=== PATIENT | male | born 1935 | race Caucasian/White ===

== ENCOUNTER → 2020-10-11 | Outpatient (CLI) | payer MEDICARE, BC ==
[~2020-10-11] MED LIST: REGADENOSON 0.4 MG/5 ML SYRINGE ONE
== END | disposition home or self-care (01) ==
LOC: CFH 12:25
PROVIDERS: ATTEND Internal Medicine Cardiovascular Disease
DX: I08.0 Rheumatic disorders of both mitral and aortic valves (principal); I48.19 Other persistent atrial fibrillation; I11.9 Hypertensive heart disease without heart failure; I25.10 Atherosclerotic heart disease of native coronary artery without angina pectoris
CPT/HCPCS: 78452; 93017; 93306; A9502; J2785

== ENCOUNTER 2021-06-06 20:41 | Inpatient (IN) | payer MEDICARE, BC ==
[~2021-06-06] VITALS: Ht 177.8 cm; Wt 101.6 kg
--- NOTE | 2021-06-06 21:23 | NUR ---
Patient presents to ER c/o three episodes of vomiting which he describes as "black" and intermittent bloody stools since the [employer]. Patient is on Eliquis. States he has discomfort in his low abd when vomiting. Patient is in NAD. Respirations even and unlabored.
[2021-06-06] MEDS ORDERED: PANTOPRAZOLE 80 MG in SODIUM CHLORIDE 0.9% 50 ML IVPB ONE (21:30)
--- NOTE | 2021-06-06 21:45 | NUR ---
Patient vomited which was black.
[2021-06-06] MEDS ORDERED: ONDANSETRON 2MG/ML, 2ML ONE (21:59)
[2021-06-06] MEDS ORDERED: ONDANSETRON 2MG/ML, 2ML IVPush ONE (22:00)
[2021-06-06 22:04] LABS: BASOPHILS % (AUTO) 1 % (0-1); EOSINOPHILS % (AUTO) 1 % (1-7); LYMPHOCYTES % (AUTO) 18 % (22-44); MEAN CORPUSCULAR HEMOGLOBIN 31.7 pg (27.5-34.5); MEAN CORPUSCULAR HGB CONC 33.6 g/dL (33.2-36.2); MEAN PLATELET VOLUME 8.4 fL (7.4-10.4); MONOCYTES % (AUTO) 8 % (2-9); NEUTROPHILS % (AUTO) 73 % (42-75); PLATELET COUNT 175 x10^3/uL (130-400); RED BLOOD COUNT 3.17 x10^6/uL (4.38-5.82); RED CELL DISTRIBUTION WIDTH 14.5 % (9.4-14.8)
[2021-06-06 22:15] LABS: INTERNATIONAL NORMALIZED RATIO 1.23 (0.93-1.1)
[2021-06-06 22:16] LABS: ALANINE AMINOTRANSFERASE 30 U/L (12-78); ALBUMIN 2.8 g/dL (3.4-5.0); ANION GAP 9 mmol/L (5-15); CALCIUM 8.9 mg/dL (8.5-10.1); CHLORIDE 108 mmol/L (98-107); CREATININE 1.31 mg/dL (0.7-1.3)
[2021-06-06 22:21] LABS: ALKALINE PHOSPHATASE 62 U/L (45-117); BILIRUBIN,TOTAL 0.8 mg/dL (0.2-1.0); TOTAL PROTEIN 6.6 g/dL (6.4-8.2); TROPONIN I < 0.015 ng/mL (0.000-0.045)
[2021-06-06] MEDS: PANTOPRAZOLE 80 MG in SODIUM CHLORIDE 0.9% 100 ML IV SCH (22:40)
[2021-06-06] MEDS ORDERED: ONDANSETRON 2MG/ML, 2ML IVPush PRN (23:00)
[2021-06-06] MEDS ORDERED: OMEG1CAP34 PO (23:18)
[2021-06-06] MEDS ORDERED: APIX5TAB PO (23:18)
[2021-06-06] MEDS ORDERED: LISI-170 PO (23:18)
[2021-06-06] MEDS ORDERED: AMLO-150 PO (23:18)
[2021-06-06] MEDS ORDERED: MAGN300C PO (23:18)
[2021-06-06] MEDS ORDERED: POLY17PO5 PO (23:18)
[2021-06-06] MEDS ORDERED: FURO20TA3 PO (23:18)
[2021-06-06] MEDS ORDERED: CARV6.2512 PO (23:18)
[2021-06-06] MEDS ORDERED: ATOR10TA9 PO (23:18)
[2021-06-06] MEDS ORDERED: METF500T17 PO (23:18)
--- NOTE | 2021-06-06 23:29 | NUR ---
Report given to ROSE Abdullahi. Patient to be transferred to room 484-1.
[2021-06-06] MEDS ORDERED: ONDANSETRON 2MG/ML, 2ML IV PRN (23:30)
[2021-06-06 23:57] VITALS: BP 137/72
[2021-06-07 01:35] VITALS: BP 105/65
[2021-06-07 06:50] VITALS: BP 98/63
[2021-06-07 07:52] LABS: BASOPHILS % (AUTO) 1 % (0-1); EOSINOPHILS % (AUTO) 0 % (1-7); LYMPHOCYTES % (AUTO) 24 % (22-44); MEAN CORPUSCULAR HEMOGLOBIN 32.1 pg (27.5-34.5); MEAN CORPUSCULAR HGB CONC 33.7 g/dL (33.2-36.2); MEAN PLATELET VOLUME 8.6 fL (7.4-10.4); MONOCYTES % (AUTO) 10 % (2-9); NEUTROPHILS % (AUTO) 66 % (42-75); PLATELET COUNT 173 x10^3/uL (130-400); RED BLOOD COUNT 2.42 x10^6/uL (4.38-5.82); RED CELL DISTRIBUTION WIDTH 14.2 % (9.4-14.8)
[2021-06-07] MEDS: PANTOPRAZOLE 80 MG in SODIUM CHLORIDE 0.9% 100 ML IV SCH ×2 (08:04→18:32)
[2021-06-07 12:22] VITALS: BP 101/47
[2021-06-07 12:43] VITALS: BP 127/70
[2021-06-07 19:07] VITALS: BP 123/71
[2021-06-07] MEDS: CARVEDILOL 6.25 MG TABLET PO SCH (19:33)
[2021-06-07] MEDS: ATORVASTATIN 10 MG TABLET PO SCH (19:33)
[2021-06-08] VITALS (8 sets, daily range): BP systolic 112–132; BP diastolic 56–81
[2021-06-08] MEDS: PANTOPRAZOLE 80 MG in SODIUM CHLORIDE 0.9% 100 ML IV SCH (04:12)
[2021-06-08] MEDS: CARVEDILOL 6.25 MG TABLET PO SCH ×2 (07:37→19:59)
[2021-06-08] MEDS: AMLODIPINE 5 MG TABLET PO SCH (07:37)
[2021-06-08] MEDS: POLYETHYLENE GLYCOL 17 GM PACKET PO SCH (07:37)
[2021-06-08] MEDS: LISINOPRIL 20 MG TABLET PO SCH (07:37)
[2021-06-08] MEDS: FUROSEMIDE 20 MG TABLET PO SCH (07:37)
[2021-06-08 08:17] LABS: ALBUMIN 2.8 g/dL (3.4-5.0); ANION GAP 8 mmol/L (5-15); CALCIUM 8.5 mg/dL (8.5-10.1); CHLORIDE 116 mmol/L (98-107); CREATININE 1.19 mg/dL (0.7-1.3)
[2021-06-08] MEDS ORDERED: CHLORHEXIDINE 15 ML UDC ONE (10:55)
[2021-06-08] MEDS ORDERED: PROPOFOL 10 MG/ML, 20ML ONE (11:10)
[2021-06-08] MEDS ORDERED: OXYcodone 5 MG/5 ML ORAL.SOL UDC PO PRN (11:30)
[2021-06-08] MEDS ORDERED: PROMETHAZINE 25 MG SUPP PR PRN (11:30)
[2021-06-08] MEDS ORDERED: LABETALOL 5MG/ML, 20ML IV PRN (11:30)
[2021-06-08] MEDS ORDERED: ONDANSETRON 2MG/ML, 2ML IVPush PRN (11:30)
[2021-06-08] MEDS ORDERED: PROMETHAZINE 25 MG/ML, 1ML IVPush PRN (11:30)
[2021-06-08] MEDS ORDERED: hydrALAzine 20 MG/ML, 1ML IV PRN (11:30)
[2021-06-08] MEDS ORDERED: METOPROLOL 1 MG/ML, 5ML IV PRN (11:30)
[2021-06-08] MEDS ORDERED: ACETAMINOPHEN 325 MG TABLET PO PRN (11:30)
[2021-06-08] MEDS ORDERED: HYDROmorphone 1 MG/ML, 1ML INJ IVPush PRN (11:30)
[2021-06-08] MEDS ORDERED: METHOCARBAMOL 1,000 MG in DEXTROSE 5% 100 ML IV PRN (11:30)
[2021-06-08] MEDS ORDERED: ONDANSETRON 2MG/ML, 2ML ONE (11:35)
[2021-06-08] MEDS ORDERED: FENTANYL PF 100 MCG/2ML ONE (11:50)
[2021-06-08] MEDS: FENTANYL PF 100 MCG/2ML IV PRN ×3 (11:51→12:13)
[2021-06-08] MEDS ORDERED: EPINEPHRINE SYRINGE 0.1 MG/ML, 10ML ONE (12:26)
[2021-06-08] MEDS: OMEPRAZOLE 20 MG CAPSULE.DR PO SCH (13:43)
[2021-06-08] MEDS ORDERED: MISO100T2 PO (16:43)
[2021-06-08] MEDS ORDERED: OMEP-110 PO (16:43)
[2021-06-08] MEDS: MISOPROSTOL 100 MCG TABLET PO SCH (17:46)
[2021-06-08] MEDS: ATORVASTATIN 10 MG TABLET PO SCH (19:59)
[2021-06-09 00:47] VITALS: BP 118/73
[2021-06-09 04:14] VITALS: BP 125/69
[2021-06-09 06:59] VITALS: BP 126/74
[2021-06-09] MEDS: AMLODIPINE 5 MG TABLET PO SCH (08:59)
[2021-06-09] MEDS: OMEPRAZOLE 20 MG CAPSULE.DR PO SCH (08:59)
[2021-06-09] MEDS: CARVEDILOL 6.25 MG TABLET PO SCH ×2 (08:59→20:13)
[2021-06-09] MEDS: LISINOPRIL 20 MG TABLET PO SCH (08:59)
[2021-06-09] MEDS: FUROSEMIDE 20 MG TABLET PO SCH (09:00)
[2021-06-09] MEDS: MISOPROSTOL 100 MCG TABLET PO SCH ×2 (09:03→17:00)
[2021-06-09] MEDS: POLYETHYLENE GLYCOL 17 GM PACKET PO SCH (09:03)
[2021-06-09 12:47] VITALS: BP 130/69
[2021-06-09 13:01] LABS: ALANINE AMINOTRANSFERASE 23 U/L (12-78); ALBUMIN 2.6 g/dL (3.4-5.0); ANION GAP 4 mmol/L (5-15); CALCIUM 7.9 mg/dL (8.5-10.1); CHLORIDE 116 mmol/L (98-107)
[2021-06-09 13:04] LABS: ALKALINE PHOSPHATASE 42 U/L (45-117); BILIRUBIN,TOTAL 1.3 mg/dL (0.2-1.0); TOTAL PROTEIN 5.6 g/dL (6.4-8.2)
[2021-06-09] MEDS ORDERED: POTASSIUM CHLORIDE 20 MEQ in SODIUM CHLORIDE 0.9% 250 ML IV ONE (14:00)
[2021-06-09] MEDS ORDERED: SODIUM CHLORIDE 0.9% 1,000ML IV ONE (15:30)
[2021-06-09 19:31] VITALS: BP 128/74
[2021-06-09] MEDS: ATORVASTATIN 10 MG TABLET PO SCH (20:14)
[2021-06-10 00:36] VITALS: BP 120/73
[2021-06-10] MEDS ORDERED: NALOXONE 0.4 MG/ML, 1ML IVPush ONE (01:30)
[2021-06-10 01:48] LABS: ANION GAP 4 mmol/L (5-15); CALCIUM 8.2 mg/dL (8.5-10.1); CHLORIDE 118 mmol/L (98-107); CREATININE 1.06 mg/dL (0.7-1.3)
[2021-06-10 02:27] LABS: BASOPHILS % (AUTO) 1 % (0-1); EOSINOPHILS % (AUTO) 1 % (1-7); LYMPHOCYTES % (AUTO) 16 % (22-44); MEAN CORPUSCULAR HGB CONC 35.6 g/dL (33.2-36.2); MEAN PLATELET VOLUME 8.4 fL (7.4-10.4); MONOCYTES % (AUTO) 9 % (2-9); NEUTROPHILS % (AUTO) 73 % (42-75); PLATELET COUNT 139 x10^3/uL (130-400); RED BLOOD COUNT 2.14 x10^6/uL (4.38-5.82)
[2021-06-10 02:38] LABS: ALBUMIN 2.5 g/dL (3.4-5.0); ANION GAP 9 mmol/L (5-15); CALCIUM 7.8 mg/dL (8.5-10.1); CHLORIDE 115 mmol/L (98-107); CREATININE 1.13 mg/dL (0.7-1.3)
[2021-06-10 06:57] VITALS: BP 123/71
[2021-06-10] MEDS ORDERED: POTASSIUM CHLORIDE 20 MEQ TAB.ER.PRT PO ONE (08:00)
[2021-06-10] MEDS: MISOPROSTOL 100 MCG TABLET PO SCH ×2 (08:31→16:39)
[2021-06-10] MEDS: POLYETHYLENE GLYCOL 17 GM PACKET PO SCH (08:31)
[2021-06-10] MEDS: AMLODIPINE 5 MG TABLET PO SCH (08:31)
[2021-06-10] MEDS: FUROSEMIDE 20 MG TABLET PO SCH (08:31)
[2021-06-10] MEDS: OMEPRAZOLE 20 MG CAPSULE.DR PO SCH (08:31)
[2021-06-10] MEDS: CARVEDILOL 6.25 MG TABLET PO SCH ×2 (08:31→20:26)
[2021-06-10] MEDS: LISINOPRIL 20 MG TABLET PO SCH (08:32)
[2021-06-10 12:09] VITALS: BP 154/79
[2021-06-10] MEDS: CEFTRIAXONE 2 GM in DEXTROSE 5% 50 ML IVPB SCH (18:26)
[2021-06-10] MEDS: LACTULOSE 10 GM/15 ML UDC NG SCH ×2 (18:26→20:26)
[2021-06-10] MEDS: ATORVASTATIN 10 MG TABLET PO SCH (20:26)
[2021-06-10 20:28] VITALS: BP 120/49
[2021-06-11 00:43] VITALS: BP 130/77
[2021-06-11 05:45] LABS: MICROSCOPIC INDICATED
[2021-06-11 06:16] LABS: BASOPHILS % (AUTO) 1 % (0-1); EOSINOPHILS % (AUTO) 1 % (1-7); LYMPHOCYTES % (AUTO) 14 % (22-44); MEAN CORPUSCULAR HEMOGLOBIN 35.4 pg (27.5-34.5); MEAN CORPUSCULAR HGB CONC 35.8 g/dL (33.2-36.2); MEAN PLATELET VOLUME 8.5 fL (7.4-10.4); MONOCYTES % (AUTO) 9 % (2-9); NEUTROPHILS % (AUTO) 75 % (42-75); PLATELET COUNT 156 x10^3/uL (130-400); RED BLOOD COUNT 2.34 x10^6/uL (4.38-5.82); RED CELL DISTRIBUTION WIDTH 15.4 % (9.4-14.8)
[2021-06-11 06:27] LABS: ALANINE AMINOTRANSFERASE 28 U/L (12-78); ALBUMIN 2.8 g/dL (3.4-5.0); ANION GAP 4 mmol/L (5-15); CALCIUM 8.2 mg/dL (8.5-10.1); CHLORIDE 118 mmol/L (98-107); CREATININE 1.19 mg/dL (0.7-1.3)
[2021-06-11 06:29] LABS: ALKALINE PHOSPHATASE 54 U/L (45-117); BILIRUBIN,TOTAL 1.1 mg/dL (0.2-1.0); TOTAL PROTEIN 6.1 g/dL (6.4-8.2)
[2021-06-11] MEDS ORDERED: POTASSIUM CHLORIDE 40 MEQ in SODIUM CHLORIDE 0.9% 500 ML IV ONE (07:30)
[2021-06-11 07:56] VITALS: BP 152/81
[2021-06-11] MEDS: OMEPRAZOLE 20 MG CAPSULE.DR PO SCH (09:38)
[2021-06-11] MEDS: LACTULOSE 10 GM/15 ML UDC NG SCH ×3 (09:38→20:55)
[2021-06-11] MEDS: FUROSEMIDE 20 MG TABLET PO SCH (09:39)
[2021-06-11] MEDS: LISINOPRIL 20 MG TABLET PO SCH (09:39)
[2021-06-11] MEDS: MISOPROSTOL 100 MCG TABLET PO SCH ×2 (09:39→16:31)
[2021-06-11] MEDS: POTASSIUM CHLORIDE 20 MEQ PACKET NG SCH ×2 (09:39→16:31)
[2021-06-11] MEDS: AMLODIPINE 5 MG TABLET PO SCH (09:39)
[2021-06-11] MEDS: POLYETHYLENE GLYCOL 17 GM PACKET PO SCH (09:39)
[2021-06-11] MEDS ORDERED: OMNIPAQUE 350 MG/ML, 75ML BOTTLE ONE (10:23)
[2021-06-11] MEDS: CARVEDILOL 6.25 MG TABLET PO SCH ×2 (11:30→20:56)
[2021-06-11 12:30] VITALS: BP 137/75
[2021-06-11] MEDS: CEFTRIAXONE 2 GM in DEXTROSE 5% 50 ML IVPB SCH (16:31)
[2021-06-11 18:58] VITALS: BP 152/82
[2021-06-11] MEDS: ATORVASTATIN 10 MG TABLET PO SCH (20:56)
[2021-06-12 01:03] VITALS: BP 132/75
[2021-06-12] MEDS ORDERED: SODIUM BICARB 8.4%, 50ML SYRINGE ONE ×3 (03:45→04:42)
[2021-06-12] MEDS ORDERED: SODIUM CHLORIDE 0.9%, 250ML ONE (03:45)
[2021-06-12] MEDS ORDERED: EPINEPHRINE SYRINGE 0.1 MG/ML, 10ML ONE (03:45)
[2021-06-12] MEDS ORDERED: CODE BLUE RESPONSE XX ONE (03:45)
[2021-06-12] MEDS ORDERED: EPINEPHRINE 1 MG/ML, 1ML ONE (03:45)
[2021-06-12] MEDS ORDERED: NOREPINEPHRINE 1 MG/ML, 4ML ONE (03:49)
[2021-06-12 03:51] LABS: BASOPHILS % (AUTO) 1 % (0-1); EOSINOPHILS % (AUTO) 1 % (1-7); LYMPHOCYTES % (AUTO) 38 % (22-44); MEAN CORPUSCULAR HGB CONC 32.9 g/dL (33.2-36.2); MEAN PLATELET VOLUME 8.8 fL (7.4-10.4); MONOCYTES % (AUTO) 7 % (2-9); NEUTROPHILS % (AUTO) 54 % (42-75); PLATELET COUNT 184 x10^3/uL (130-400); RED BLOOD COUNT 2.51 x10^6/uL (4.38-5.82); RED CELL DISTRIBUTION WIDTH 15.4 % (9.4-14.8)
[2021-06-12] MEDS ORDERED: DEXTROSE 50%, 50ML SYRINGE IVPush PRN (04:00)
[2021-06-12] MEDS ORDERED: LIDOCAINE-MPF 1%, 2ML ENDO PRN (04:00)
[2021-06-12] MEDS ORDERED: PHARMACY MAY ADJ FOR RENAL FX MC SCH (04:00)
[2021-06-12] MEDS ORDERED: GLUCAGON 1 MG IM PRN (04:00)
[2021-06-12] MEDS ORDERED: PROPOFOL 100 ML IV PRN (04:00)
[2021-06-12] MEDS ORDERED: FENTANYL PF 100 MCG/2ML IVPush PRN (04:00)
[2021-06-12] MEDS ORDERED: DEXTROSE 4 GM TAB.CHEW PO PRN (04:00)
[2021-06-12] MEDS ORDERED: CALCIUM CHLORIDE 10%, 10ML SYR ONE (04:33)
[2021-06-12] MEDS ORDERED: SODIUM BICARB 8.4%, 50ML SYRINGE IVPush ONE (05:00)
[2021-06-12] MEDS ORDERED: VASOPRESSIN 20 UNIT in SODIUM CHLORIDE 0.9% 99 ML IV PRN (05:00)
[2021-06-12] MEDS ORDERED: SODIUM BICARBONATE 1 MEQ/ML, 50ML VIAL IVPush ONE (05:00)
[2021-06-12] MEDS ORDERED: CALCIUM CHLORIDE 10%, 10ML SYR IVPush ONE (05:00)
[2021-06-12] MEDS ORDERED: SODIUM CHLORIDE 0.9% 1,000 ML IV ONE (05:00)
[2021-06-12] MEDS: NOREPINEPHRINE 8 MG in SODIUM CHLORIDE 0.9% 242 ML IV PRN ×3 (06:08→12:38)
[2021-06-12] MEDS: EPINEPHRINE 5 MG in SODIUM CHLORIDE 0.9% 245 ML IV PRN ×2 (06:53→11:12)
[2021-06-12] MEDS: POTASSIUM CHLORIDE 20 MEQ PACKET NG SCH (08:00)
[2021-06-12 08:34] LABS: ALANINE AMINOTRANSFERASE 29 U/L (12-78); ALBUMIN 2.6 g/dL (3.4-5.0); CALCIUM 8.7 mg/dL (8.5-10.1)
[2021-06-12 08:37] LABS: ALKALINE PHOSPHATASE 60 U/L (45-117); BILIRUBIN,TOTAL 0.5 mg/dL (0.2-1.0); TOTAL PROTEIN 6.2 g/dL (6.4-8.2)
[2021-06-12 08:47] LABS: CHLORIDE 122 mmol/L (98-107)
[2021-06-12 08:52] LABS: ANION GAP 13 mmol/L (5-15)
[2021-06-12] MEDS ORDERED: SODIUM CHLORIDE FLUSH 10ML SYR IVF SCH (09:00)
[2021-06-12] MEDS: LACTULOSE 10 GM/15 ML UDC NG SCH (09:00)
[2021-06-12] MEDS: LISINOPRIL 20 MG TABLET PO SCH (09:00)
[2021-06-12] MEDS ORDERED: PINK BISMUTH 87.33 MG/5 ML ORAL SUSP PO SCH (10:00)
[2021-06-12] MEDS ORDERED: AMOXICILLIN 250 MG/5 ML, ORAL SUSP PO SCH (10:00)
[2021-06-12] MEDS ORDERED: metroNIDAZOLE 250 MG TABLET PO SCH (10:00)
[2021-06-12] MEDS: OMEPRAZOLE 20 MG CAPSULE.DR PO SCH (11:27)
[2021-06-12] MEDS: POLYETHYLENE GLYCOL 17 GM PACKET PO SCH (11:27)
[2021-06-12] MEDS ORDERED: SODIUM BICARBONATE 8.4% 100 MEQ in DEXTROSE 5% 1,000 ML IV SCH (12:30)
[2021-06-12] MEDS ORDERED: ONDANSETRON 2MG/ML, 2ML IVPush PRN (14:00)
[2021-06-12] MEDS ORDERED: ATROPINE OPHTH SOLN 1%, 5ML PO PRN (14:00)
[2021-06-12] MEDS ORDERED: LORazepam 2 MG/ML, 1ML IVPush PRN (14:00)
[2021-06-12] MEDS ORDERED: MORPHINE SULFATE 4 MG/ML, 1ML IVPush PRN (14:00)
[2021-06-12] MEDS ORDERED: LORazepam 2 MG/ML, 1ML IV ONE (14:00)
[2021-06-12] MEDS ORDERED: MORPHINE SULFATE 4 MG/ML, 1ML IV ONE (14:00)
== END 2021-06-12 15:23 | DRG 377 ==
LOC: ED 21:11 → EDIP 23:14 → 4EST 23:48 → CCU 06-12 03:42
PROVIDERS: ADMIT Internal Medicine; ATTEND Hospitalist
PROC: 5A12012 Performance of Cardiac Output, Single, Manual (ICD-10-PCS; 2021-06-06)
PROC: 0W3P8ZZ Control Bleeding in Gastrointestinal Tract, Via Natural or Artificial Opening Endoscopic (ICD-10-PCS; 2021-06-08)
PROC: 30233N1 Transfusion of Nonautologous Red Blood Cells into Peripheral Vein, Percutaneous Approach (ICD-10-PCS; 2021-06-08)
PROC: 0DB68ZX Excision of Stomach, Via Natural or Artificial Opening Endoscopic, Diagnostic (ICD-10-PCS; 2021-06-08)
PROC: 0DB98ZX Excision of Duodenum, Via Natural or Artificial Opening Endoscopic, Diagnostic (ICD-10-PCS; 2021-06-08)
PROC: 3E0G8GC Introduction of Other Therapeutic Substance into Upper GI, Via Natural or Artificial Opening Endoscopic (ICD-10-PCS; principal; 2021-06-08 12:00)
PROC: 30233N1 Transfusion of Nonautologous Red Blood Cells into Peripheral Vein, Percutaneous Approach (ICD-10-PCS; 2021-06-12)
PROC: 5A1935Z Respiratory Ventilation, Less than 24 Consecutive Hours (ICD-10-PCS; 2021-06-12)
PROC: 0BH17EZ Insertion of Endotracheal Airway into Trachea, Via Natural or Artificial Opening (ICD-10-PCS; 2021-06-12)
DX: K25.4 Chronic or unspecified gastric ulcer with hemorrhage (principal); I63.40 Cerebral infarction due to embolism of unspecified cerebral artery; J96.00 Acute respiratory failure, unspecified whether with hypoxia or hypercapnia; N17.0 Acute kidney failure with tubular necrosis; I48.20 Chronic atrial fibrillation, unspecified; D62 Acute posthemorrhagic anemia; E87.0 Hyperosmolality and hypernatremia; E87.2 Acidosis; G93.1 Anoxic brain damage, not elsewhere classified; I46.9 Cardiac arrest, cause unspecified; Z20.822 Contact with and (suspected) exposure to COVID-19; Z51.5 Encounter for palliative care; B96.81 Helicobacter pylori [H. pylori] as the cause of diseases classified elsewhere; D72.823 Leukemoid reaction; E78.5 Hyperlipidemia, unspecified; R29.717 NIHSS score 17; E11.65 Type 2 diabetes mellitus with hyperglycemia; E66.01 Morbid (severe) obesity due to excess calories; G47.33 Obstructive sleep apnea (adult) (pediatric); I10 Essential (primary) hypertension; D72.829 Elevated white blood cell count, unspecified; I25.10 Atherosclerotic heart disease of native coronary artery without angina pectoris; I65.29 Occlusion and stenosis of unspecified carotid artery; R94.31 Abnormal electrocardiogram [ECG] [EKG]; K29.60 Other gastritis without bleeding; K29.80 Duodenitis without bleeding; K29.90 Gastroduodenitis, unspecified, without bleeding; Z68.32 Body mass index [BMI] 32.0-32.9, adult; Z82.49 Family history of ischemic heart disease and other diseases of the circulatory system; Z79.01 Long term (current) use of anticoagulants; Z79.899 Other long term (current) drug therapy; Z79.891 Long term (current) use of opiate analgesic; Z86.73 Personal history of transient ischemic attack (TIA), and cerebral infarction without residual deficits; Z90.49 Acquired absence of other specified parts of digestive tract; Z95.1 Presence of aortocoronary bypass graft; Z88.7 Allergy status to serum and vaccine
CPT/HCPCS: 36415; 36600; 70450; 70551; 71045; 71275; 74018; 80048; 80053; 80069; 81001; 82140; 82803; 82962; 83735; 84100; 84145; 84478; 84484; 85014; 85018; 85025; 85379; 85610; 86850; 86870; 86900; 86902; 86922; 86923; 87040; 87070; 87081; 87147; 87205; 87635; 88305; 92950; 93005; 93880; 94002; 94003; 96365; 96375; C8929; G0378; J0171; J0696; J2310; J2405; J2704; J3010; J3480; J7070; Q9957; Q9967; C9113; J2060; J2270; J7030; J7040; J7050; P9016